=== PATIENT | male | born 2000 | race Two or more races ===

== ENCOUNTER 2018-02-18 18:57 | Emergency (ER) | payer SELFPAY ==
[~2018-02-18] VITALS: Ht 172.7 cm; Wt 59.0 kg
[2018-02-18 19:05] VITALS: BP 130/90
[2018-02-18] MEDS ORDERED: QUET50TA PO (19:07)
== END 2018-02-19 02:00 | disposition left against medical advice (07) ==
LOC: ER 18:57
DX: Z53.21 Procedure and treatment not carried out due to patient leaving prior to being seen by health care provider (principal)